=== PATIENT | female | born 1975 | race Caucasian/White ===

== ENCOUNTER 2017-05-09 13:49 | Emergency (ER) | payer SELFPAY ==
[~2017-05-09] VITALS: Ht 160 cm; Wt 81.5 kg
[2017-05-09 13:55] VITALS: BP 167/99; PULSE 83; RESP 20; TEMP 98.5; O2SAT 96
[2017-05-09] MEDS ORDERED: ZOFR4TAB PO (16:33)
--- NOTE | 2017-05-09 16:36 | PD ---
HPI Chief Complaint: Skin Problem Time Seen by Provider: 16:17 Travel History International Travel<30 days: No Contact w/Intl Traveler<30days: No Traveled to known affect area: No History of Present Illness HPI 41-year-old female with a history of eczema presents emergency department concerned about an infection to the left ring finger that started approximately 1 week ago. Patient states that she went to [facility] 2 days ago where they prescribed clindamycin and ibuprofen. States that she has not been able to take these medications as prescribed as they have caused nausea. In addition , patient states that she has been taking 1 capsule 3 times a day instead of the prescribed 3 capsules 3 times a day. Says that she has also been taking ibuprofen 800 mg 3 times a day as directed although she does not feel she needs this medication. Patient does not know how she acquired this infection and believes it may be a result of a spider bite or from her eczema. She denies fever, chills, nausea, vomiting, diarrhea. PFSH Past Medical History Medical History: Denies Significant Hx Diminished Hearing: No ?: Not Past Surgical History Surgical History: No Previous Surgery Social History Alcohol Use: No Tobacco Use: No Substance Use: No Allergies-Medications (Allergen,Severity, Reaction): Coded Allergies: No Known Allergies (Verified Allergy, Unknown, 05/09/17) Reported Meds & Prescriptions Reported Meds & Active Scripts Active Zofran (Ondansetron HCl) 4 Mg Tab 4 Mg PO Q8HR PRN 5 Days Take with or before your medication to reduce nausea. Review of Systems Except as stated in HPI: all other systems reviewed are Neg Physical Exam Narrative GENERAL: Well-nourished, well-developed patient. SKIN: Focused skin assessment warm/dry. HEAD: Normocephalic. EYES: No scleral icterus. No injection or drainage. NECK: Supple, trachea midline. No JVD or lymphadenopathy. CARDIOVASCULAR: Regular rate and rhythm without murmurs, gallops, or rubs. RESPIRATORY: Breath sounds equal bilaterally. No accessory muscle use. MUSCULOSKELETAL: No cyanosis, or edema. left ring finger-edema with erythema to the medial aspect of proximal phalanx without lymph angiopathic spread, [place]ie[place] sign negative, patient does have full range of motion of finger. BACK: Nontender without obvious deformity. No CVA tenderness. Data Data Last Documented VS Vital Signs Date Time Temp Pulse Resp B/P (MAP) Pulse Ox O2 Delivery O2 Flow Rate FiO2 05/09/17 13:55 98.5 83 20 167/99 (121) 96 Orders Orders Clindamycin Inj (Cleocin Inj) (05/09/17 16:45) Ed Discharge Order (05/09/17 16:53) MDM Medical Decision Making Medical Screen Exam Complete: Yes Emergency Medical Condition: Yes Differential Diagnosis Left ring finger cellulitis, erysipelas, tenosynovitis Narrative Course 41-year-old female with a history of eczema presents emergency department concerned about an infection to the left ring finger that started approximately 1 week ago. Patient states that she went to [facility] 2 days ago where they prescribed clindamycin and ibuprofen. States that she has not been able to take these medications as prescribed as they have caused nausea. In addition , patient states that she has been taking 1 capsule 3 times a day instead of the prescribed 3 capsules 3 times a day. Says that she has also been taking ibuprofen 800 mg 3 times a day as directed although she does not feel she needs this medication. Patient does not know how she acquired this infection and believes it may be a result of a spider bite or from her eczema. She denies fever, chills, nausea, vomiting, diarrhea. Vital signs demonstrate temperature 98.5, blood pressure 167/99, heart rate 83, SaO2 96% on room air. Physical exam findings consistent with cellulitis of the left proximal phalanx ring finger, [place] sign negative, full range of motion of finger, no puncta or area of fluctuance Clindamycin 600 mg IM administered. After review of the medication bottles, it appears the patient has been taking the medication incorrectly. It does not appear that the cellulitis is circumferential around the finger and is not compromised neurovascular status. Patient will be prescribed Zofran to help prevent nausea from the medications that she has been prescribed. Advised that she should eat with these medications to prevent nausea as well. Patient states understanding and will comply. Return for worsening or persistent symptoms. Diagnosis Primary Impression: Cellulitis of left finger Referrals: Hand Surgeon Primary Care Physician Additional Instructions: Take the clindamycin as previously prescribed. Take Zofran prior to taking clindamycin to reduce nausea. Continue the ibuprofen that was previously prescribed for pain and swelling as needed. If you develop fevers, chills, increased swelling, increased pain return to the emergency department immediately Consider follow-up with a hand specialist for evaluation of your finger. Follow-up with primary care physician this week. Scripts Ondansetron (Zofran) 4 Mg Tab 4 MG PO Q8HR Y for NAUSEA OR VOMITING for 5 Days, TAB 0 Refills Take with or before your medication to reduce nausea. Prov: Yanira Lopez 05/09/17 Disposition: 01 DISCHARGE HOME Condition: Stable Yanira Lopez May 09, 2017 16:35
[2017-05-09] MEDS ORDERED: CLINDAMYCIN PHOS 600 MG/4 ML VIAL IM ONE (16:45)
== END 2017-05-09 17:29 | disposition home or self-care (01) ==
LOC: NEPA 13:49
DX: L03.012 Cellulitis of left finger (principal)
CPT/HCPCS: 96372